=== PATIENT | male | born 1990 | race Caucasian/White ===

== ENCOUNTER → 2022-02-07 | Outpatient (CLI) | payer OTHER ==
--- NOTE | 2022-02-07 12:05 | XR ---
EXAMINATION TYPE: XR hand complete RT DATE OF EXAM: 02/07/2022 COMPARISON: NONE HISTORY: Pain TECHNIQUE: Three views are submitted. FINDINGS: Joint space is preserved. There is a thin linear lucency along the base of metacarpal. Mild narrowing of the second MCP. Sclerosis of the lunate bone. IMPRESSION: 1. Linear lucency base of metacarpal may be related to soft tissue artifact. Correlate with point ten derness to exclude hairline fracture. 2. Sclerotic change of the lunate and recommend short-term follow-up MRI to assess for intraosseous l esion versus osteonecrosis
--- NOTE | 2022-02-07 12:06 | XR ---
EXAMINATION TYPE: XR wrist complete RT DATE OF EXAM: 02/07/2022 COMPARISON: NONE HISTORY: Pain TECHNIQUE: Four views submitted. FINDINGS: Joint space is preserved. There is a thin linear lucency along the base of metacarpal. Mild narrowing of the second MCP. Sclerosis of the lunate bone. IMPRESSION: 1. Linear lucency base of metacarpal may be related to soft tissue artifact. Correlate with point ten derness to exclude hairline fracture. 2. Sclerotic change of the lunate and recommend short-term follow-up MRI to assess for intraosseous l esion versus osteonecrosis
== END | disposition home or self-care (01) ==
LOC: RADXRMAIN 11:28
PROVIDERS: ATTEND Emergency Medicine
DX: S60.221A Contusion of right hand, initial encounter (principal); S60.211A Contusion of right wrist, initial encounter; X58.XXXA Exposure to other specified factors, initial encounter